=== PATIENT | female | born 1950 | race Caucasian/White ===

== ENCOUNTER → 2016-08-25 | Outpatient (CLI) | payer MEDICARE, OTHER ==
[~2016-08-25] MED LIST: ALEVE 220MG220 MG PO; ATENOLOL; AVALOX; BENADRYL25 M2 PO; BENEFIBER1 POW PO; BLOOD PRESSURE MED; CALCIUM CARBON600 MG PO; CENTRUM SILVER1 CTB PO; COLACE 100100 MG/CAP PO; DIFLUCAN150 MG PO; LOTENSIN HCT 201 TA1 PO; LOTRIMIN1% TP; MOTRIN 800800 MG/TAB PO; MYCOSTATIN100000 U/G TP; PENLAC TP; PROBIOTIC-MAJOR PO; PROBIOTIC-SUNMARK PO; TENORMIN100 MG PO; TURMERIC PO
== END ==
LOC: MC.RAD 13:42
DX: Z12.31 Encounter for screening mammogram for malignant neoplasm of breast (principal)

== ENCOUNTER 2018-06-19 13:30 | Outpatient (RCR) | payer MEDICARE, OTHER | END 2018-06-19 14:11 | disposition home or self-care (01) | LOC: WSC 13:30 | DX: M70.61 Trochanteric bursitis, right hip (principal) ==

== ENCOUNTER 2018-10-16 08:24 | Inpatient (IN) | payer MEDICARE, OTHER ==
[2018-10-16] VITALS (16 sets, daily range): BP systolic 114–188; BP diastolic 66–98; PULSE 52–77; TEMP 97.8–98.6
[~2018-10-16] VITALS: Ht 180.3 cm; Wt 123.6 kg
[2018-10-16] MEDS ORDERED: MOBIC15 MG PO (08:54)
[2018-10-16] MEDS ORDERED: MUCINEX 60600 MG/TA1 PO (08:55)
[2018-10-16] MEDS ORDERED: VITAMIND3 5000 PO (08:55)
[2018-10-16] MEDS ORDERED: ASPIRIN E.C. 8181 MG PO (08:56)
[2018-10-16] MEDS ORDERED: NASACORT OTC NS (08:56)
[2018-10-16] MEDS ORDERED: AFRIN 15 ML15 ML NS (08:57)
[2018-10-16 09:42] LABS: HEMATOCRIT 42.8 % (37.0-47.0); HEMOGLOBIN 14.2 g/dl (12.5-16.0); MEAN CELL VOLUME 92 fl (80.0-100.0); MEAN CORPUSCULAR HEMOGLOBIN 31 pg (27.0-31.0); MEAN CORPUSCULAR HGB CONC 33 g/dl (33.0-37.0); MEAN PLATELET VOLUME 9.4 fl (7.4-10.4); PLATELET COUNT 173 K/mm3 (130-400); RED BLOOD COUNT 4.66 M/mm3 (4.10-5.30); REDCELL DISTRIBUTION WIDTH-CV 12.8 % (11.5-14.5)
[2018-10-16 09:47] LABS: PROTHROMBIN TIME 12.1 SECONDS (9.7-12.8)
[2018-10-16 09:52] LABS: CALCIUM 9.6 mg/dL (8.4-10.2); CREATININE, serum 0.61 (0.52-1.25)
--- NOTE | 2018-10-16 10:13 | NUR ---
ALL MEDICATIONS GIVEN VORB WITH MD. SEE MERGE FOR ALL MEDICATION ADMIN TIMES. SEE MERGE FOR ALL RASS ASSESSMENTS DURING AND POST PROCEDURE. POSITIVE BARBEAU'S TEST IN THE RIGHT WRIST, RADIAL PULSE +2.
--- NOTE | 2018-10-16 11:12 | NUR ---
Patient transported back to to room 12 at this time. Patient hooked up to monitoring equipment, VS stable. Patient denies any pain at this time. Visualized right wrist with LUIS Cortez. No oozing or hematoma present at this time. TR band remains in place with 12 ml of air in the band. Cap refill <3 seconds. Discussed importance of wrist restrictions with patient. Bed in locked and lowest position, call light within reach.
--- NOTE | 2018-10-16 11:15 | NUR ---
Back from vp lab. Right Tband CD&I with 12 cc air, strong pulses and cap refill < 3 secs noted. VSS. Will continue to monitor
--- NOTE | 2018-10-16 18:09 | NUR ---
Right TBand deflated 12 cc . No bleeding noted. Report given TO Ynes SMITH .
--- NOTE | 2018-10-16 18:23 | NUR ---
Report received from Dana in EU. Pt has not arrived to the floor at this time, will settle and prep for nightshift. Will continue to monitor.
--- NOTE | 2018-10-16 18:45 | NUR ---
Transferred to [facility] by bed. Ambulated to bathroom with unsteady gait and c/o dizziness after getting into bed.
--- NOTE | 2018-10-16 20:00 | NUR ---
Patient report received from LUIS Quick at shift change. Upon assessment at this time, Neuro checks and stroke assessment completed. Assessments WNL except for vision. The right eye does not follow the pen from the center to the left, but is able to follow the pen in any other direction. Pupils are equal and equally reactive, not sluggish. Patient reports double vision in her right eye. She trys to keep her right eye shut so she "doesn't throw up." BP elevated, but no intervention indicated. Patient up to BSC with assist, had emesis upon returning to bed. Phenergan to be given. No other needs reported/observed at this time.
--- NOTE | 2018-10-16 23:13 | NUR ---
Patient refused to take Heparin at this time. Would like to think about it before taking it. Explained to her why this medication is important and the risks involved in not taking it.
[2018-10-17] VITALS (11 sets, daily range): BP systolic 123–153; BP diastolic 57–87; PULSE 60–84; TEMP 97.4–98.5
--- NOTE | 2018-10-17 00:07 | NUR ---
Patient periodically nauseated, worse with activity.
--- NOTE | 2018-10-17 05:43 | NUR ---
Patient report given to LUIS Egan. Patient resting comfortably at this time.
[2018-10-17 07:05] LABS: ALBUMIN 3.9 gm/dL (3.5-5.0); BILIRUBIN,TOTAL 0.9 mg/dL (0.0-1.0); CALCIUM 9.3 mg/dL (8.4-10.2); CREATININE, serum 0.5 (0.52-1.25); POTASSIUM 3.4 mmol/L (3.4-5.0); TOTAL PROTEIN 6.8 gm/dL (6.4-8.2)
--- NOTE | 2018-10-17 09:25 | NUR ---
Pt is awake and A/Ox4. States her pain is a 3/10, headache. Given PRN tylenol by hotel houseman. IVF are infusing into left AC without difficulty. Neuro checks unremarkable with the exception of double vision to her right eye. Pt is up with stand by assist, does report dizziness due to double vision. Pt reports a slight bout of nausea, given PRN zofran. Pt able to eat breakfast without difficulty.
--- NOTE | 2018-10-17 11:16 | NUR ---
SW met with the pt to discuss a discharge plan. The pt lives in [place] with her grandson and his girlfriend. The pt's daughter lives in [place] and pt reports daughter may assist her after her hospitalization. The pt does not use DME and reports independence with ADLs. The pt's PCP is Dr. Rowan and pt receives medications from [facility] with no difficulties. The pt does not have advanced directives in the EMR but was interested in obtaining a DPOA-HC form. SW spoke to the patient about IPR. Patient was interested in Cari, IPR Director speaking with her further. SW informed Cari. SW will continue to follow and assist with any discharge recommendations.
--- NOTE | 2018-10-17 15:39 | NUR ---
Pt up walking in hallways with PT. States dizziness/vertigo is much better. Denies any other needs.
--- NOTE | 2018-10-17 18:12 | NUR ---
Pt requested PRN tylenol for 3/10 headache which was given. Also, given PRN antivert for slight dizziness. Pt states dizziness has improved since receiving first dose. Denies any other needs.
--- NOTE | 2018-10-17 21:00 | NUR ---
PT RESTING IN BED A+OX4. REPORTS NO PAIN. NO SOA. NO DIZZINESS. NUERO CHECKS UNCHANGED AND INSIGNIFICANT. RIGHT EYE DOES NOT FOLLOW WHEN LOOKING TO THE LEFT. PUPIL EQUEL AND REACTIVE. 4MM. IV FLUSHES WELL, NO REDNESS. NO SWELLING. NO NEEDS AT THIS TIME. CALL LIGHT IN REACH.
--- NOTE | 2018-10-17 22:51 | NUR ---
RIGHT RADIAL SITE - BANDAID DCI. NO CONCERNS.
[2018-10-18 03:23] VITALS: BP 126/73; PULSE 56; TEMP 97.9
--- NOTE | 2018-10-18 05:01 | NUR ---
PT HAD AN UNEVENTFUL NIGHT. REPORTED NO PAIN. NO DIZZINESS, NO VERTIGO. NEURO CHECKS UNCHANGED. RIGHT EYE STAYS FIXED WHEN TRACING OBJECT TO THE LEFT. OTHER NUERO CHECKS UNSIGNIFICANT. INSULIN NOT REQUIRED- BG 138. RIGHT RADIAL SITE-DCI. L AC IV FLUSHES WELL, NO REDNESS, NO SWELLING. NO NEEDS AT THIS TIME. CALL LIGHT IN REACH
--- NOTE | 2018-10-18 07:00 | NUR ---
Report received from LUIS Turner. PT in bed resting, one eye closed. Denies needs, will continue to monitor.
--- NOTE | 2018-10-18 07:13 | NUR ---
report given to jitendra bowden. pt reports no needs at this time
[2018-10-18 08:43] VITALS: BP 147/77; PULSE 67; TEMP 97.8
--- NOTE | 2018-10-18 09:45 | NUR ---
Assessment charted. Pt still has double vision, c/o nausea, PRN nausea meds provided. Pt able to do neurochecks, R eye fixed when moving to the left but otherwise unremarkable. Denies needs, IVF to L a/c, will continue to monitor.
[2018-10-18] MEDS ORDERED: LIPITOR 10MG10 MG PO (10:58)
[2018-10-18] MEDS ORDERED: ANTIVERT 25MG25 MG PO (10:58)
[2018-10-18] MEDS ORDERED: PLAVIX 75MG TAB75 MG PO (10:58)
[2018-10-18] MEDS ORDERED: NOVOLOG 100U100 U/M1 SQ (10:58)
[2018-10-18] MEDS ORDERED: ZOFRAN 4MG T4 MG/TAB PO (10:58)
--- NOTE | 2018-10-18 11:17 | NUR ---
First visit from the clinical technologist. No needs right now.
[2018-10-18 12:12] VITALS: BP 141/66; PULSE 60; TEMP 98.2
--- NOTE | 2018-10-18 15:44 | NUR ---
Report called to LUIS Cerna in IPR, pt showering and getting ready, when ready will transfer to IPR.
== END 2018-10-18 15:50 | DRG 66 ==
LOC: COL.CAR 08:24 → MEDICAL 16:37
PROVIDERS: Internal Medicine; ADMIT Internal Medicine Cardiovascular Disease
PROC: 4A023N7 Measurement of Cardiac Sampling and Pressure, Left Heart, Percutaneous Approach (ICD-10-PCS; principal; 2018-10-16)
PROC: B2111ZZ Fluoroscopy of Multiple Coronary Arteries using Low Osmolar Contrast (ICD-10-PCS; 2018-10-16)
DX: I63.9 Cerebral infarction, unspecified (principal); I10 Essential (primary) hypertension; I25.10 Atherosclerotic heart disease of native coronary artery without angina pectoris; E78.5 Hyperlipidemia, unspecified; E66.9 Obesity, unspecified; H53.2 Diplopia; G93.9 Disorder of brain, unspecified; R73.9 Hyperglycemia, unspecified; G47.30 Sleep apnea, unspecified; Z68.37 Body mass index [BMI] 37.0-37.9, adult; Z88.5 Allergy status to narcotic agent
CPT/HCPCS: 99232-AI; 99239; J1644; J2250; J2405; J2550; J3010; J7030; Q9967

== ENCOUNTER 2018-10-18 11:49 | Inpatient (IN) | payer MEDICARE, OTHER ==
[~2018-10-18] VITALS: Ht 180.3 cm; Wt 123.2 kg
[~2018-10-18 11:49] MED LIST changes: +AFRIN 15 ML15 ML NS; +ANTIVERT 25MG25 MG PO; +ASPIRIN E.C. 8181 MG PO; +LIPITOR 10MG10 MG PO; +MOBIC15 MG PO; +MUCINEX 60600 MG/TA1 PO; +NASACORT OTC NS; +NOVOLOG 100U100 U/M1 SQ; +PLAVIX 75MG TAB75 MG PO; +VITAMIND3 5000 PO; +ZOFRAN 4MG T4 MG/TAB PO
[2018-10-18 16:08] VITALS: BP 139/58; PULSE 65; TEMP 98.2
--- NOTE | 2018-10-18 17:00 | NUR ---
Patient arrived to IPR Room 334 at 1605 today. Patient resting in recliner at this time and this nurse going over IPR schedules for the next day. Patient became very anxious and was upset that her alarm would need to be on each time she needed to get up to use the bathroom. Patient stated that she was considering not staying if the alarms would have to be on. She reported that she had been over at the medical unit and was independent with all her transfers prior to coming over here. She didn't understand why the alarms would have to be on. Cari was contacted and was okay with patient going to the bathroom on her own, but only if this nurse saw that she was ambulting safely. This nurse watched patient ambulate and she was holding on to wall, table and door to ambulate to the bathroom. This was considered to be unsafe. This nurse then gave her a walker to use and patient was able to ambulate safely using the walker to and from the bathroom. Patient was also asked to use her call light to let staff know that she would be ambulating to the bathroom, but that staff did not have to assist her back and forth, but just needed to be aware what she was doing. Patient was in agreement with this. Nursing and ORE PUNCHER staff was updated on this.
--- NOTE | 2018-10-18 20:00 | NUR ---
See admission assessment form. Patient alert and oriented x 4. Initially denied pain then later reported dull headache to right frontal. Took tylenol earlier at 1900 and denies needs at this time. Snack of pudding and christina crackers given. Up to the bathroom with walker and rests back in bed. HS meds reviewed and given.
--- NOTE | 2018-10-19 02:21 | NUR ---
Patient rests quietly in bed.
[2018-10-19 05:32] VITALS: BP 131/51; PULSE 62; TEMP 98
--- NOTE | 2018-10-19 06:05 | NUR ---
CASH PROCESSOR offered assistance to get patients clothes out for her for PT 0815. Patient declines and states she'll get them out. Patient didn't call for assistance during the night.
--- NOTE | 2018-10-19 08:31 | NUR ---
Report from LUIS Painting. Pt ate breakfast sitting up in bed. Glasses in place, lights dim in room d/t visual disturbances, pt squints rt eye. A&O, pleasant, speech clear with occ hesitation. Takes pills a few at a time with thin liquids. Reports dizziness/nausea, meclizine given. Edu about PRN tylenol and meclizine, pt verbalizes understanding. Questions answered, denied any questions for doctor. Pt commented about leaving soon, but nurse mentioned she might stay at least through Tuesday as she was just admitted. Denies numbness. Walking in ward with PT.
--- NOTE | 2018-10-19 13:49 | NUR ---
SW met with patient for initial intake, as patient is new to [facility]. Prior to hospitalization, patient lived independently at home with her grandson, Siddhartha, and worked at [employer]. Patient's PCP is Dr Rowan and she obtains prescriptions from [facility]. Patient did not use any DME or home health services at home and was independent with all ADLs. Patient was provided a DPOA-HC form on the acute medical floor. Patient designated her grandson, Siddhartha, to be her DPOA-HC. A copy is on the chart. CHAS informed patient of Tuesday Team Conferences and also potentially a family conference while she is in rehab. CHAS will continue to follow.
[2018-10-19 15:30] VITALS: BP 131/60; PULSE 57; TEMP 98.3
--- NOTE | 2018-10-19 20:42 | NUR ---
Pt given PRNs for headache and dizziness earlier in shift. Pt to recliner for supper, denied any needs at shift change. Report to LUIS Luevano.
--- NOTE | 2018-10-19 21:00 | NUR ---
PT RESTING IN BED. PLEASANT BUT QUIET. PT RPORTS SHE FEEL LIKE DIPLOPIA IS IMPROVING. DENIES DIZZINESS OR NAUSEA AT THIS TIME. PT REPORTS HSE HAD A BM TODAY ON DAY SHIFT. NO COGNITIVE OR NEUROVASCULAR DEFICITS. CALL LIGHT IN REACH.
--- NOTE | 2018-10-19 21:01 | NUR ---
WEARS GLASSES PRN FOR DIPLOPIA WITH RT LENS COVERED.
[2018-10-20 04:50] VITALS: BP 130/70; PULSE 58; TEMP 98
--- NOTE | 2018-10-20 06:39 | NUR ---
PT REPORTS HAS NOT SLEPT WELL THIS SHIFT. DNEIES FURTHER NAUSEA. JUST CANT SLEEP WELL.
--- NOTE | 2018-10-20 10:01 | NUR ---
Report from LUIS Luevano. Pt requested tylenol and meclizine, then requested more for nausea prior to therapy, PRNs given. Pt has glasses in place at this time without the clear tape over right lens. Reports nausea improved at this time.
--- NOTE | 2018-10-20 13:24 | NUR ---
Initial visit; Patient doing well and appeared to appreciate Track Dresser's visit and blessings.
[2018-10-20 15:57] VITALS: BP 117/60; PULSE 69; TEMP 98.3
--- NOTE | 2018-10-20 20:00 | NUR ---
PT RESTING IN BED. VERBALIZES DESIRE TO BE DISCHARGED. RELATES SHE FEELS SHE IS GETTING ALONG WELL AND HAS HER GRANSON AT HOME FOR SAFETY. RELATES SHE DOESN'T SEE A REASON TO STAY THROUGH THE WEEKEND. REVIEWED PT, OT NOTES AND DR CARLOS'S PROGRESS NOTE. PT AGREED TO TALK TO PHYSICAL THERAPY ABOUT THEIR THOUGHTS IN AM AND WILL RELAY INFO IN MORNING TO NEXT NURSE. PT RELATES VERY MILD NAUSEA. WEARING GLASSES WITH RT LENS COVERED. CALL LIGHT IN REACH.
--- NOTE | 2018-10-20 22:20 | NUR ---
PT RELATES WAS LAYING ON LEFT SIDE AND TURNED TO SUPINE. BECAME NAUSEATED WITH LT TEMPORAL H/A. SEE VS. NO OTHER CHANGES. SEE MAR FOR MEDS GIVEN.
[2018-10-20 22:45] VITALS: BP 141/64; PULSE 57
--- NOTE | 2018-10-20 23:57 | NUR ---
PT SLEEPING. NO DISTRESS NOTED.
[2018-10-21 05:09] VITALS: BP 140/55; PULSE 58; TEMP 98
--- NOTE | 2018-10-21 08:00 | NUR ---
PT SITTING UP IN BED, SHE HAS JUST FINISHED HER MEAL. ATE 100%. DENIES NEEDS OR PAIN. GAVE AM MEDS. CALL LIGHT IN REACH.
--- NOTE | 2018-10-21 15:21 | NUR ---
SITTING IN RECLINER WATCHING TV
[2018-10-21 17:36] VITALS: BP 131/70; PULSE 57; TEMP 97.9
[2018-10-22 06:00] VITALS: BP 130/71; PULSE 55; TEMP 98
--- NOTE | 2018-10-22 09:37 | NUR ---
Report from LUIS Luevano. Pt in bed, reports "knotted up" muscle to rt thigh. Tyleonl and warm pack provided.
--- NOTE | 2018-10-22 13:13 | NUR ---
Per Chloé's report, arjun RN, ordered and notified [facility] for services Tuesday for deficits with higher level cog/complex communication
[2018-10-22 16:57] VITALS: BP 138/59; PULSE 62; TEMP 98.1
--- NOTE | 2018-10-22 19:50 | NUR ---
Pt denied needs at shift change, no tylenol or warm pack. Report to LUIS Luevano.
--- NOTE | 2018-10-22 21:30 | NUR ---
PT SITTING IN RECLINER. WATCHING TV. DENIES NAUSEA BUT C/O MILD HEASACHE TO LT TEMPORAL REGION. SEE MAR FOR TYLENOL GIVEN. UP ABOUT ROOM TO BR. C/O CONSTIPATION. GAVE [place].
[2018-10-23 05:29] VITALS: BP 142/73; PULSE 70; TEMP 98.1
--- NOTE | 2018-10-23 09:10 | NUR ---
Patient attending therapy at this time. Tolerated diet well this morning. Patient talkative, makes her needs known, Alert and oriented times 4. Lungs sounded clear, takes pills independently with water. Given prn miralax this morning, awaiting results. Patient denied pain at this time. Will continue to monitor.
--- NOTE | 2018-10-23 15:32 | NUR ---
Outpatient PT/OT are being recommended for the patient. CHAS met with the patient and she chose [facility] CHAS informed Cari, [facility] Director. CHAS will continue to follow to assist with discharge recommendations.
[2018-10-23 16:02] VITALS: BP 123/64; PULSE 65; TEMP 98.1
--- NOTE | 2018-10-23 18:03 | NUR ---
Patient resting in bed at this time, call light in reach and is independent in her room and hallway without the use of a walker. Patient was informed that she would be discharged on Tuesday of this week. Patient denied pain this shift. She did report that her vision still causes her some blurred vision, but does feel that it is improving. Patient received a shower this morning with OT. Patient takes pills whole with water and is indpendent with grooming, toileting, transferring, dressing and communicates well with staff.
--- NOTE | 2018-10-23 22:00 | NUR ---
Patient awakened for HS meds. Denies dizziness this evening. "Doing pretty good". Denies pain. States family may be intonight and bring snack.
--- NOTE | 2018-10-24 02:00 | NUR ---
Patient rests with eyes closed on left side. Respirations with ease.
[2018-10-24 04:04] VITALS: BP 124/61; PULSE 64; TEMP 97.7
--- NOTE | 2018-10-24 09:01 | NUR ---
Patient independent in room with no walker. Patient tolerated diet well this morning. Denies pain at this time. Patient independent with eating and with all her grooming. Will continue to monitor.
[2018-10-24 15:42] VITALS: BP 115/53; PULSE 60; TEMP 98
--- NOTE | 2018-10-24 15:42 | NUR ---
Discussed relationship with patient's one surviving daughter and about her daughter that not too long ago from Influenza.
--- NOTE | 2018-10-24 21:18 | NUR ---
Tylenol given for reports of headache left frontal. BP 126/65. Alert and oriented. Hand photograph retoucher equal. Encouraged to call if continues or increases.
--- NOTE | 2018-10-24 22:19 | NUR ---
Rests quietly in bed. Respirations with ease.
--- NOTE | 2018-10-25 04:30 | NUR ---
Patient resting with eyes closed. Respirations with ease.
[2018-10-25 04:56] VITALS: BP 142/67; PULSE 62; TEMP 97.6
--- NOTE | 2018-10-25 07:00 | NUR ---
Report received from LUIS Painting. PT in bed resting, upon entry Dr. Garcia here to see patient. Will continue to monitor and prep for discharge.
[2018-10-25] MEDS ORDERED: LIPITOR 10MG10 MG PO (07:06)
[2018-10-25] MEDS ORDERED: PLAVIX 75MG TAB75 MG PO (07:06)
[2018-10-25] MEDS ORDERED: ZOFRAN 4MG T4 MG/TAB PO (07:08)
[2018-10-25] MEDS ORDERED: ANTIVERT 25MG25 MG PO (07:08)
--- NOTE | 2018-10-25 08:00 | NUR ---
Assessment charted. Pt feeling well, "very slight" headache, denies needs to medicate. anticipating discharge today after lunch. Denies other needs, will get appointments straightened out for discharge and continue to monitor.
--- NOTE | 2018-10-25 11:43 | NUR ---
The pt is to discharge home today, 10/25 with outpatient physical therapy at [facility]). SW presented the IM form; pt understood and signed the form. A copy was provided to the pt; original was placed in the chart. There are no additional needs at this time.
--- NOTE | 2018-10-25 13:05 | NUR ---
Discharge teaching completed at si time. Reviewed f/u appointments, new scripts sent to pharmacy, packet reviewed in detail. pt verbalized understanding, answered all qeustions. Pt left with all belongings. Escorted out by surgical staff. Family to drive home. Criteria met.
== END 2018-10-25 12:45 | disposition home or self-care (01) | DRG 57 ==
PROVIDERS: ADMIT Internal Medicine
DX: I69.998 Other sequelae following unspecified cerebrovascular disease (principal); I25.10 Atherosclerotic heart disease of native coronary artery without angina pectoris; I10 Essential (primary) hypertension; G93.9 Disorder of brain, unspecified; R73.9 Hyperglycemia, unspecified; Z90.710 Acquired absence of both cervix and uterus; Z88.5 Allergy status to narcotic agent; Z79.82 Long term (current) use of aspirin
CPT/HCPCS: 99222-AI; 99232-AI; 99239; J1644

== ENCOUNTER 2018-12-11 15:30 | Outpatient (RCR) | payer MEDICARE, OTHER | END 2018-12-15 09:17 | disposition home or self-care (01) | LOC: MKS.ESL.PT 15:30 | DX: I69.354 Hemiplegia and hemiparesis following cerebral infarction affecting left non-dominant side (principal) ==

== ENCOUNTER → 2019-01-12 | Outpatient (CLI) | payer MEDICARE, OTHER | LOC: MC.RAD 13:45 | DX: Z12.31 Encounter for screening mammogram for malignant neoplasm of breast (principal); Z98.890 Other specified postprocedural states; Z90.13 Acquired absence of bilateral breasts and nipples ==

== ENCOUNTER 2019-05-17 09:54 | Outpatient (CLI) | payer MEDICARE, OTHER ==
[~2019-05-17] VITALS: Ht 180.3 cm; Wt 122.3 kg
[~2019-05-17 09:54] MED LIST changes: -LOTENSIN HCT 201 TA1 PO; +ZESTORETIC 25 M1 TAB PO
[2019-05-17] MEDS ORDERED: LIPITOR 40MG TA40 MG PO (10:33)
[2019-05-17] MEDS ORDERED: CARTIA XT240 MG PO (10:34)
[2019-05-17] MEDS ORDERED: PLAVIX 75MG TAB75 MG PO (10:36)
[2019-05-17] MEDS ORDERED: ZANAFLEX2 MG PO (10:39)
[2019-05-17 10:40] VITALS: BP 162/90; PULSE 72; TEMP 98.6
[2019-05-17] MEDS ORDERED: CEPHALEXIN500 M1 PO (12:06)
[2019-05-17 12:30] VITALS: BP 162/77; PULSE 67
--- NOTE | 2019-05-17 12:37 | NUR ---
Pt sitting at edge of bed, having some juice and crackers... she did not have c/o pain after loop insertion, however did feel "shakey" and thought is was because she had not eaten. otherwise pt is ready to go. we have reviewed dc/fu and rx instructions and pt denies any questions.
--- NOTE | 2019-05-17 12:40 | NUR ---
Pt ready for discharge, except that she is feeling "shakey", and when I walked out with pt toward elevator, she reported feeling "winded". radial pulse was fast, so pt decided to come back to room and make sure she was feeling better before she left. I called Max Beck who stated pt did get the loop recorder for suspected SVT, and pt could leave if feeling better, and to call Dr. High if sx persisted. Pt was feeling better, although a little shakey still, and after about an hour walked out on her own (even though I had asked her to wait for me to escort her out) I called her to make sure she made it home, and she had, and was still feeling a little shakey. I advised pt to go to the ER if sx were severe or persistent.
== END 2019-05-17 17:18 | disposition home or self-care (01) ==
LOC: COL.CAR 09:54
DX: I47.1 Supraventricular tachycardia (principal); I25.10 Atherosclerotic heart disease of native coronary artery without angina pectoris; I10 Essential (primary) hypertension; E78.5 Hyperlipidemia, unspecified; G47.33 Obstructive sleep apnea (adult) (pediatric); R73.02 Impaired glucose tolerance (oral); E66.9 Obesity, unspecified; M19.90 Unspecified osteoarthritis, unspecified site; Z90.49 Acquired absence of other specified parts of digestive tract; Z90.710 Acquired absence of both cervix and uterus; Z88.1 Allergy status to other antibiotic agents; Z88.5 Allergy status to narcotic agent; Z88.8 Allergy status to other drugs, medicaments and biological substances; Z79.82 Long term (current) use of aspirin; Z79.02 Long term (current) use of antithrombotics/antiplatelets; Z80.9 Family history of malignant neoplasm, unspecified; Z86.73 Personal history of transient ischemic attack (TIA), and cerebral infarction without residual deficits

== ENCOUNTER → 2019-11-01 | Outpatient (CLI) | payer MEDICARE, OTHER ==
[~2019-11-01] MED LIST changes: +CARTIA XT240 MG PO; +CEPHALEXIN500 M1 PO; +LIPITOR 40MG TA40 MG PO; +ZANAFLEX2 MG PO
== END ==
LOC: COL.RAD 12:20
DX: M25.572 Pain in left ankle and joints of left foot (principal)
CPT/HCPCS: J3301; Q9967

== ENCOUNTER → 2020-01-24 | Outpatient (CLI) | payer MEDICARE, OTHER | LOC: MC.RAD 16:45 | DX: Z12.31 Encounter for screening mammogram for malignant neoplasm of breast (principal) ==

== ENCOUNTER → 2020-07-11 | Outpatient (CLI) | payer MEDICARE, OTHER ==
[~2020-07-11] MED LIST changes: +VANTIN 200200 MG/TAB PO
== END ==
LOC: COL.RAD 12:34
DX: M19.072 Primary osteoarthritis, left ankle and foot (principal)
CPT/HCPCS: J3301; Q9967

== ENCOUNTER 2020-07-17 00:13 | Emergency (ER) | payer MEDICARE, OTHER ==
[~2020-07-17] VITALS: Ht 177.8 cm; Wt 118.6 kg
[~2020-07-17 00:13] MED LIST changes: -VANTIN 200200 MG/TAB PO
[2020-07-17 00:40] VITALS: BP 164/105; TEMP 97
[2020-07-17 01:19] LABS: COLLECTION METHOD CLEAN CATCH
[2020-07-17 01:25] LABS: BASO % 0.3 % (0.0-2.0); EOS # 0.4 (0.0-0.7); EOS % 2.4 % (0-4.0); GRAN # 10.1 (1.4-6.5); GRAN % 67.4 % (42.2-75.2); HEMATOCRIT 46.7 % (37.0-47.0); HEMOGLOBIN 15.6 g/dl (12.5-16.0); LYMPH # 3.2 (1.2-3.4); LYMPH % 21.4 % (20.0-51.0); MEAN CELL VOLUME 90 fl (80.0-100.0); MEAN CORPUSCULAR HEMOGLOBIN 30 pg (27.0-31.0); MEAN CORPUSCULAR HGB CONC 33 g/dl (33.0-37.0); MEAN PLATELET VOLUME 9.5 fl (7.4-10.4); MONO # 1.2 (0.1-0.6); PLATELET COUNT 269 K/mm3 (130-400); RED BLOOD COUNT 5.17 M/mm3 (4.10-5.30); REDCELL DISTRIBUTION WIDTH-CV 12.9 % (11.5-14.5)
[2020-07-17 01:32] LABS: PH 5 (5-8); SQUAMOUS EPITHELIAL None Seen /hpf; URINE APPEARANCE Turbid; URINE BACTERIA None Seen /hpf; URINE BILIRUBIN Negative (NEGATIVE); URINE BLOOD 3+ (NEGATIVE); URINE COLOR Amber; URINE GLUCOSE 1+ (NEGATIVE); URINE KETONE Trace (NEGATIVE); URINE LEUKOCYTE ESTERASE Trace (NEGATIVE); URINE NITRATE Negative (NEGATIVE); URINE PROTEIN(semi-quant) 2+ (NEGATIVE); URINE RBC >50 /hpf; URINE UROBILINOGEN Negative (NEGATIVE)
[2020-07-17 01:35] LABS: INR 1.2 (0.8-3.0); PROTHROMBIN TIME 13.5 SECONDS (9.7-12.8)
[2020-07-17 01:37] LABS: ALBUMIN 4.5 gm/dL (3.5-5.0); BILIRUBIN,TOTAL 0.7 mg/dL (0.0-1.0); CREATININE, serum 0.71 (0.52-1.25); TOTAL PROTEIN 7.7 gm/dL (6.4-8.2)
[2020-07-17 01:38] LABS: PARTIAL THROMBOPLASTIN TIME 38.2 SECONDS (26.0-37.0)
[2020-07-17] MEDS ORDERED: VANTIN 200200 MG/TAB PO (02:46)
[2020-07-17 03:09] VITALS: PULSE 72
== END 2020-07-17 03:11 | disposition home or self-care (01) ==
LOC: COL.ER 00:13
PROVIDERS: Emergency Medicine
DX: N30.01 Acute cystitis with hematuria (principal); D72.829 Elevated white blood cell count, unspecified; Z86.73 Personal history of transient ischemic attack (TIA), and cerebral infarction without residual deficits; Z90.49 Acquired absence of other specified parts of digestive tract; Z88.5 Allergy status to narcotic agent; Z88.8 Allergy status to other drugs, medicaments and biological substances; Z79.82 Long term (current) use of aspirin; Z79.02 Long term (current) use of antithrombotics/antiplatelets
CPT/HCPCS: J0696; Q9967